=== PATIENT | female | born 1955 | race Caucasian/White ===

== ENCOUNTER 2018-12-22 18:40 | Emergency (ER) | payer BC, OTHER ==
[2018-12-22] MEDS ORDERED: IPRATROPIUM BROM 0.5MG/2.5ML ONE (20:51)
[2018-12-22] MEDS ORDERED: LEVALBUTEROL 1.25 MG/3 ML NEB ONE (20:51)
--- NOTE | 2018-12-22 21:06 | RAD REPORT ---
EXAM DESCRIPTION: RAD - Chest Pa And Lat (2 Views) - 12/22/2018 8:40 pm CLINICAL HISTORY: Cough COMPARISON: April 2014 TECHNIQUE: PA and lateral views of the chest were obtained. FINDINGS: The lungs are fibrotic as a baseline. Numerous calcified granulomas and calcified mediasti nal/hilar lymph nodes seen. This a stable pattern. No superimposed failure, infiltrate or mass. Hea rt size is normal and central vasculature is within normal limits. No pleural effusion or pneumothor ax seen. No acute bony finding noted. No aortic abnormality. IMPRESSION: Chronic interstitial lung disease similar to comparison. No acute finding.
[2018-12-22 21:10] LABS: Absolute Lymphocytes (CBC) 0.5 K/uL (0.7-4.9); Absolute Monocytes 0.8 K/uL (0.1-1.3); Absolute Neutrophil 2.3 K/uL (1.8-8.0); Basophils % 1.3 % (0-1.3); Eosinophils % 0.1 % (0-4.4); Hematocrit 40.4 % (36.0-45.0); Lymphocytes % 14.4 % (15.3-44.8); MPV 8.4 fL (7.6-11.3); Monocytes % 22.6 % (3.3-12.3); RBC Red Blood Cell Count 4.28 M/uL (3.86-4.86)
[2018-12-22 21:26] LABS: ALT/SGPT 28 U/L (12-78); AST/SGOT 28 U/L (15-37); Albumin 3.7 g/dL (3.4-5.0); Alkaline Phosphatase 97 U/L (45-117); BUN Blood Urea Nitrogen 7 mg/dL (7-18); Bicarbonate 26 mmol/L (21-32); Bilirubin Direct 0.2 mg/dL (0-0.2); Bilirubin Total 0.5 mg/dL (0.2-1.0); Glucose Level 99 mg/dL (74-106); NT PRO-BNP 353 pg/mL (<125); Potassium 3.2 mmol/L (3.5-5.1); Protein, Total 7.8 g/dL (6.4-8.2); Sodium Level 139 mmol/L (136-145); Troponin (Emerg Dept Use Only) < 0.02 ng/mL (0.0-0.045)
--- NOTE | 2018-12-22 22:03 | ER ---
Nurse's Notes [facility] Name: Moriah Cristobal Age: 63 yrs Sex: Female : 1955 Arrival Date: 12/22/2018 Time: 18:52 Bed 13 Private MD: Diagnosis: Acute Viral Syndrome;Influenza A infection Presentation: 12/22 18:59 Risk Assessment: Do you want to hurt yourself or someone else? Patient reports no sg desire to harm self or others. Initial Sepsis Screen: Does the patient meet any 2 criteria? RR > 20 per min. Does the patient have a suspected source of infection? Yes: Productive cough/pneumonia. Care prior to arrival: None. 18:59 Acuity: HUBER 3 sg 19:05 Method Of Arrival: Ambulatory cc3 19:05 Transition of care: patient was not received from another setting of care. Onset of cc3 symptoms was December 22, 2018. 19:05 Presenting complaint: Patient states: intermittent cough with productive sputum. cc3 Historical: - Allergies: 19:00 PENICILLINS; sg 19:00 Codeine; sg 19:00 ANDROGENIC ANABOLIC STEROID; sg - PMHx: 19:01 None; sg - PSHx: 19:00 Knee surgery; ; sg 19:01 ankle; sg - Immunization history:: Adult Immunizations up to date. - Social history:: Smoking status: Patient/guardian denies using tobacco. - Ebola Screening: : Patient negative for fever greater than or equal to 101.5 degrees Fahrenheit, and additional compatible Ebola Virus Disease symptoms Patient denies exposure to infectious person Patient denies travel to an Ebola-affected area in the 21 days before illness onset No symptoms or risks identified at this time. - Family history:: not pertinent. - Hospitalizations: : No recent hospitalization is reported. Screenin:05 Abuse screen: Denies threats or abuse. Denies injuries from another. Nutritional cc3 screening: No deficits noted. Tuberculosis screening: No symptoms or risk factors identified. Fall Risk Ambulatory Aid- None/Bed Rest/Nurse Assist (0 pts). Gait- Normal/Bed Rest/Wheelchair (0 pts) Mental Status- Oriented to own ability (0 pts). Assessment: 19:05 General: Appears in no apparent distress. comfortable, Behavior is calm, cooperative, cc3 appropriate for age. Pain: Denies pain. Neuro: Level of Consciousness is awake, alert, obeys commands, Oriented to person, place, time, situation, Appropriate for age. Cardiovascular: Patient's skin is warm and dry. Respiratory: Airway is patent Respiratory effort is even, unlabored, Respiratory pattern is regular, symmetrical. GI: Bowel sounds present X 4 quads. Abd is soft and non tender X 4 quads. : No signs and/or symptoms were reported regarding the genitourinary system. EENT: No signs and/or symptoms were reported regarding the EENT system. Derm: No signs and/or symptoms reported regarding the dermatologic system. Musculoskeletal: Circulation, motion, and sensation intact. Range of motion: intact in all extremities. 20:18 Reassessment: Patient appears in no apparent distress at this time. Patient and/or cc3 family updated on plan of care and expected duration. Pain level reassessed. Patient is alert, oriented x 3, equal unlabored respirations, skin warm/dry/pink. 21:25 Reassessment: Patient appears in no apparent distress at this time. Patient and/or cc3 family updated on plan of care and expected duration. Pain level reassessed. Patient is alert, oriented x 3, equal unlabored respirations, skin warm/dry/pink. 22:30 Reassessment: Patient appears in no apparent distress at this time. Patient and/or cc3 family updated on plan of care and expected duration. Pain level reassessed. Patient is alert, oriented x 3, equal unlabored respirations, skin warm/dry/pink. Dr. Johnson discharged the patient home with prescription given. IV cannula removed and patient left ER vitally stable and ambulatory with her . Vital Signs: 18:58 Pulse 96; Resp 19 S; Temp 98.9; Pulse Ox 94% on R/A; Pain 3/10; sg 18:59 BP 159 / 78; sg 19:22 BP 156 / 83; Pulse 92; Resp 19 S; Temp 100(O); Pulse Ox 95% on R/A; cc3 20:30 BP 141 / 80; Pulse 88; Resp 20 S; Pulse Ox 96% on R/A; cc3 21:18 BP 143 / 82; Pulse 87; Resp 19 S; Temp 99.5(O); Pulse Ox 96% on R/A; cc3 22:20 BP 137 / 70; Pulse 85; Resp 19 S; Pulse Ox 96% on R/A; cc3 ED Course: 18:52 Patient arrived in ED. as 18:58 Arm band placed on. sg 18:59 Triage completed. 19:05 Mishel Can is Primary Nurse. cc3 19:05 Patient has correct armband on for positive identification. Placed in gown. Bed in low cc3 position. Call light in reach. Side rails up X 1. Pulse ox on. NIBP on. 19:21 Kvng Johnson MD is Attending Physician. pr 20:36 XRAY Chest Pa And Lat (2 Views) In Process Unspecified. EDMS 20:55 Inserted saline lock: 20 gauge in right antecubital area, using aseptic technique. cc3 Blood collected. inserted by polysomnography technician Jessie. 22:30 No provider procedures requiring assistance completed. IV discontinued, intact, cc3 bleeding controlled, No redness/swelling at site. Pressure dressing applied. Administered Medications: 20:40 Drug: Xopenex 1.25 mg Route: Inhalation; cc3 22:20 Follow up: Response: No adverse reaction cc3 20:40 Drug: AtroVENT Aerosol 0.5 mg Route: Inhalation; cc3 22:20 Follow up: Response: No adverse reaction cc3 Outcome: 22:02 Discharge ordered by . pr 22:30 Discharged to home ambulatory, with family. cc3 22:30 Condition: stable 22:30 Discharge instructions given to patient, family, Instructed on discharge instructions, follow up and referral plans. medication usage, Demonstrated understanding of instructions, follow-up care, medications, Prescriptions given X 3. 22:35 Patient left the ED. cc3 Signatures: Dispatcher [employer] EDAK James Staples, RN RN Monika Cochran as Kvng Johnson MD MD wa Cordel, Charlene cc3 Corrections: (The following items were deleted from the chart) 22:32 19:05 Pain: Complains of pain in abdomen cc3 cc3 22:52 21:18 BP 143 / 82; Pulse 87bpm; Resp 19bpm; Spontaneous; Pulse Ox 96% RA; cc3 cc3
--- NOTE | 2018-12-22 22:03 | EDPHYS ---
Physician Documentation [facility] Name: Moriah Cristobal Age: 63 yrs Sex: Female : 1955 Arrival Date: 12/22/2018 Time: 18:52 Bed 13 Private MD: ED Physician Kvng Johnson HPI: 12/22 21:55 This 63 yrs old Female presents to ER via Ambulatory with complaints of wa Cough, Abdominal Pain. 21:55 The patient or guardian reports cough, that is intermittent, with productive sputum, wa that is white, runny nose. body aches. denies abd pain on direct query. Onset: The symptoms/episode began/occurred today. Severity of symptoms: At their worst the symptoms were moderate, in the emergency department the symptoms are unchanged. Modifying factors: The symptoms are alleviated by nothing, the symptoms are aggravated by cough. Associated signs and symptoms: Pertinent positives: rhinorrhea, Pertinent negatives: chest pain, diarrhea, fever, nausea, sore throat, vomiting. The patient has not experienced similar symptoms in the past. The patient has not recently seen a physician. denies abd pain. states coughing spells that take breath away with white sputum and runny nose. denies chest pain, SOB, orthopnea or PND. Historical: - Allergies: 19:00 PENICILLINS; sg 19:00 Codeine; sg 19:00 ANDROGENIC ANABOLIC STEROID; sg - PMHx: 19:01 None; sg - PSHx: 19:00 Knee surgery; ; sg 19:01 ankle; sg - Immunization history:: Adult Immunizations up to date. - Social history:: Smoking status: Patient/guardian denies using tobacco. - Ebola Screening: : Patient negative for fever greater than or equal to 101.5 degrees Fahrenheit, and additional compatible Ebola Virus Disease symptoms Patient denies exposure to infectious person Patient denies travel to an Ebola-affected area in the 21 days before illness onset No symptoms or risks identified at this time. - Family history:: not pertinent. - Hospitalizations: : No recent hospitalization is reported. ROS: 21:59 Constitutional: Negative for fever, chills, and weight loss, Eyes: Negative for injury, wa pain, redness, and discharge, Neck: Negative for injury, pain, and swelling, Cardiovascular: Negative for chest pain, palpitations, and edema, Abdomen/GI: Negative for abdominal pain, nausea, vomiting, diarrhea, and constipation, Back: Negative for injury and pain, : Negative for injury, bleeding, discharge, and swelling, MS/Extremity: Negative for injury and deformity, Skin: Negative for injury, rash, and discoloration, Neuro: Negative for headache, weakness, numbness, tingling, and seizure. 21:59 ENT: Positive for rhinorrhea, Negative for ear pain, sore throat, difficulty swallowing, hoarseness. 21:59 All other systems are negative. Exam: 21:59 Constitutional: This is a well developed, well nourished patient who is awake, alert, wa and in no acute distress. Head/Face: Normocephalic, atraumatic. Eyes: Pupils equal round and reactive to light, extra-ocular motions intact. Lids and lashes normal. Conjunctiva and sclera are non-icteric and not injected. Cornea within normal limits. Periorbital areas with no swelling, redness, or edema. Neck: Trachea midline, no thyromegaly or masses palpated, and no cervical lymphadenopathy. Supple, full range of motion without nuchal rigidity, or vertebral point tenderness. No Meningismus. Chest/axilla: Normal chest wall appearance and motion. Nontender with no deformity. No lesions are appreciated. Cardiovascular: Regular rate and rhythm with a normal S1 and S2. No gallops, murmurs, or rubs. Normal PMI, no JVD. No pulse deficits. Abdomen/GI: Soft, non-tender, with normal bowel sounds. No distension or tympany. No guarding or rebound. No evidence of tenderness throughout. Back: No spinal tenderness. No costovertebral tenderness. Full range of motion. Skin: Warm, dry with normal turgor. Normal color with no rashes, no lesions, and no evidence of cellulitis. MS/ Extremity: Pulses equal, no cyanosis. Neurovascular intact. Full, normal range of motion. Neuro: Awake and alert, GCS 15, oriented to person, place, time, and situation. Cranial nerves II-XII grossly intact. Motor strength 5/5 in all extremities. Sensory grossly intact. Cerebellar exam normal. Normal gait. Psych: Awake, alert, with orientation to person, place and time. Behavior, mood, and affect are within normal limits. 21:59 ENT: External ear(s): are unremarkable, Ear canal(s): are normal, TM's: are normal, Nose: is normal, Posterior pharynx: is normal. 21:59 Respiratory: the patient does not display signs of respiratory distress, Respirations: normal, Breath sounds: cough spells with deep inspiration. otherwise clear. Vital Signs: 18:58 Pulse 96; Resp 19 S; Temp 98.9; Pulse Ox 94% on R/A; Pain 3/10; sg 18:59 BP 159 / 78; sg 19:22 BP 156 / 83; Pulse 92; Resp 19 S; Temp 100(O); Pulse Ox 95% on R/A; cc3 20:30 BP 141 / 80; Pulse 88; Resp 20 S; Pulse Ox 96% on R/A; cc3 21:18 BP 143 / 82; Pulse 87; Resp 19 S; Temp 99.5(O); Pulse Ox 96% on R/A; cc3 22:20 BP 137 / 70; Pulse 85; Resp 19 S; Pulse Ox 96% on R/A; cc3 MDM: 19:21 Patient medically screened. 22:01 Differential Diagnosis: Bronchitis Influenza Upper Respiratory Infection Viral Syndrome wa Pneumonia. Data reviewed: vital signs, nurses notes. Test interpretation: by ED physician or midlevel provider: no acute process on CXR. flu A positive. . Response to treatment: the patient's symptoms have markedly improved after treatment. 22:05 Test interpretation: by ED physician or midlevel provider: EKG: interp. by me. HR 81. wa diffuse non-specific ST-T changes. 12/22 20:25 Order name: Flu; Complete Time: 21:38 12/22 20:25 Order name: BMP; Complete Time: 21:38 12/22 20:25 Order name: CBC with Diff; Complete Time: 21:38 12/22 20:25 Order name: Hepatic Function; Complete Time: 21:38 12/22 20:25 Order name: NT PRO-BNP; Complete Time: 21:38 12/22 20:25 Order name: Troponin (emerg Dept Use Only) 12/22 20:25 Order name: XRAY Chest Pa And Lat (2 Views); Complete Time: 21:38 12/22 20:25 Order name: EKG; Complete Time: 20:26 12/22 20:25 Order name: Cardiac monitoring; Complete Time: :12/22 20:25 Order name: EKG - Nurse/Tech; Complete Time: mi 12/22 20:25 Order name: IV Saline Lock; Complete Time: :12/22 20:25 Order name: Labs collected and sent; Complete Time: : mi 12/22 20:25 Order name: O2 Per Protocol; Complete Time: mi 12/22 20:25 Order name: O2 Sat Monitoring; Complete Time: : mi Administered Medications: 20:40 Drug: Xopenex 1.25 mg Route: Inhalation; cc3 22:20 Follow up: Response: No adverse reaction cc3 20:40 Drug: AtroVENT Aerosol 0.5 mg Route: Inhalation; cc3 22:20 Follow up: Response: No adverse reaction cc3 Disposition: 12/22/18 22:02 Discharged to Home. Impression: Acute Viral Syndrome, Influenza A infection. - Condition is Stable. - Discharge Instructions: Influenza, Adult, [id number]. - Prescriptions for Zofran 4 mg Oral Tablet - take 1 tablet by ORAL route every 12 hours As needed; 20 tablet. Albuterol Sulfate 2.5 mg /3 mL (0.083 %) Inhalation Solution for Nebulization - inhale 1 unit by NEBULIZATION route every 8 hours As needed; 1 box. Tamiflu 75 mg Oral Capsule - take 1 tablet by ORAL route every 12 hours for 5 days; 10 tablet. - Medication Reconciliation Form, Thank You Letter, Antibiotic Education, Prescription Opioid Use form. - Follow up: Private Physician; When: 1 - 2 days; Reason: Recheck today's complaints. - Problem is new. - Symptoms have improved. - Notes: return here immediately for rapidly worsening concerns. see your doctor for follow up within 48 hours otherwise Signatures: Dispatcher [employer] EDMS James Staples RN RN Kvng Johnson MD MD wa Cordel, Charlene cc3 Corrections: (The following items were deleted from the chart) 22:35 22:02 12/22/2018 22:02 Discharged to Home. Impression: Acute Viral Syndrome; Influenza cc3 A infection. Condition is Stable. Forms are Medication Reconciliation Form, Thank You Letter, Antibiotic Education, Prescription Opioid Use. Follow up: Private Physician; When: 1 - 2 days; Reason: Recheck today's complaints. Problem is new. Symptoms have improved. wa
[2018-12-22 22:51] VITALS: TEMP 100
[2018-12-22 22:53] VITALS: O2SAT 96
[2018-12-22 22:54] VITALS: BP 143/82
--- NOTE | 2018-12-23 22:30 | EKG ---
Test Date: 2018-12-22 Test Time: 21:17:04 Global Logistics Manager: ANDREA MEASUREMENT RESULTS: Intervals: Rate: 77 NH: 142 QRSD: 94 QT: 390 QTc: 441 [place]: P: 28 NH: 142 QRS: 69 T: 28 INTERPRETIVE STATEMENTS: Normal sinus rhythm Nonspecific ST abnormality Abnormal ECG Compared to ECG 05/19/2014 20:59:13 ST (T wave) deviation now present Sinus arrhythmia no longer present Right-axis deviation no longer present Left ventricular hypertrophy no longer present Electronically Signed On 12-23-18 22:28:18 CLINICAL NURSE OCCUPATIONAL MEDICINE by Dagoberto Galeana
--- NOTE | 2018-12-23 22:30 | EKG ---
Test Date: 2018-12-22 Test Time: 21:17:48 Lap Layer: ANDREA MEASUREMENT RESULTS: Intervals: Rate: 81 SD: 144 QRSD: 96 QT: 388 QTc: 450 [place]: P: 59 SD: 144 QRS: 69 T: 45 INTERPRETIVE STATEMENTS: Normal sinus rhythm Possible Left atrial enlargement Nonspecific ST and T wave abnormality Abnormal ECG Compared to ECG 12/22/2018 21:17:04 No significant changes Electronically Signed On 12-23-18 22:28:16 COLLAR TRIMMER by Dagoberto Galeana
== END 2018-12-22 22:35 | disposition home or self-care (01) ==
LOC: ER 18:40
DX: J11.1 Influenza due to unidentified influenza virus with other respiratory manifestations (principal); B34.9 Viral infection, unspecified; Z88.0 Allergy status to penicillin; Z88.5 Allergy status to narcotic agent; Z88.8 Allergy status to other drugs, medicaments and biological substances
CPT/HCPCS: 36415; 71046; 80048; 80076; 83880; 84484; 85025; 87804; 93005; 99284